=== PATIENT | male | born 1940 | race Caucasian/White ===

== ENCOUNTER 2017-07-28 20:41 | Inpatient (IN) | payer BC ==
[2017-07-28] MEDS ORDERED: methylPREDNISolone Sod Succ/PF 125 MG/2 ML VIAL ONE (21:52)
[2017-07-28] MEDS ORDERED: Magnesium Sulfate 2 GM/100 ML BAG ONE (21:52)
--- NOTE | 2017-07-28 21:54 | RAD ---
CHEST ONE VIEW: 07/28/17 HISTORY: Patient is sick for three days. Dyspnea. COMPARISON: None. FINDINGS: Atherosclerosis of the aorta. Normal cardiac silhouette. Pulmonary vessels and hilum are normal. Limi kim evaluation of the costophrenic angles due to exclusion. Large pleural effusions are not appreciat ed. Lungs are hyperinflated. Chronic changes are noted. No consolidation or masses. No pneumothorax. Old left rib fractures. Previous fixation hardware in the left clavicle. IMPRESSION: 1. Hyperinflation. Chronic changes. 2. Atherosclerosis. POS: [facility]
[2017-07-28 22:09] LABS: #Eosinphils 0.1 thou/uL (0.0-0.7); #Lymphocytes 0.7 thou/uL (1.20-3.40); #Monocytes 0.6 thou/uL (0.11-0.59); #Neutrophils 6.9 thou/uL (1.40-6.50); %Basophils 0.5 % (0.0-1.0); %Eosinophils 0.9 % (0.0-10.0); %Lymphocytes 8.7 % (21.0-51.0); %Monocytes 6.8 % (0.0-10.0); %Neutrophils 83.1 % (42.0-75.0); Hemoglobin 10.1 g/dL (14.0-18.0); Mean Corpuscular HGB CONC 31.1 g/dL (32.0-36.0); Mean Corpuscular Hemoglobin 32.5 pg (27.0-31.0); Mean Platelet Volume 7.5 fL (7.4-10.4); Platelet Count 195 thou/uL (130-400); RBC Distribution Width 12.4 % (11.5-14.5); Red Blood Cell (RBC) Count 3.11 mill/uL (4.70-6.10); White Blood Cell (WBC) Count 8.3 thou/uL (4.8-10.8)
[2017-07-28 22:16] LABS: Bilirubin Negative (Negative); Blood, Urine Moderate (Negative); Clarity CLEAR (Clear); Glucose, Urine (Dipstick) Negative (Negative); Leukocyte Negative (Negative); Nitrite Negative (Negative); Protein, Urine (Dipstick) Trace mg/dL (Neg-Trace); Specific Gravity, Urine 1.013 (1.002-1.036); Urobilinogen 0.2 mg/dL (0.2-1.0)
[2017-07-28 22:23] LABS: Bacteria/HPF None Seen HPF (None Seen); Hyaline Casts/LPF 0-3 HYALINE CAST LPF (0-3 Hyaline); Pathc Cast-AUWi Flag 0.14 (0-2.49); Squamous Epithelial None Seen HPF (0-3); WBC/HPF None Seen HPF (0-3)
[2017-07-28 22:30] LABS: ALT (SGPT) 9 U/L (8-55); AST (SGOT) 18 U/L (5-34); Albumin 3.5 g/dL (3.4-4.8); Alkaline Phosphatase 53 U/L (40-150); Anion Gap 12 mmol/L (10-20); BUN (Urea Nitrogen) 26 mg/dL (8.4-25.7); Bilirubin, Total 0.2 mg/dL (0.2-1.2); CK (CPK) 28 U/L (30-200); Calc. Creatinine Clearance 0 mL/min (70-130); Calcium 9.4 mg/dL (7.8-10.44); Carbon Dioxide 35 mmol/L (23-31); Chloride 93 mmol/L (98-107); Estimated GFR-MDRD 77; Globulin 3.6 g/dL (2.4-3.5); Glucose 107 mg/dL (83-110); Lipase 18 U/L (8-78); Potassium 4.3 mmol/L (3.5-5.1); Protein, Total 7.1 g/dL (5.8-8.1); Sodium 136 mmol/L (136-145)
[2017-07-28 22:33] LABS: CKMB 2.4 ng/mL (0-6.6); Troponin I Less than 0.010 ng/mL (< 0.028)
[2017-07-28] MEDS ORDERED: Azithromycin 500 MG VIAL ONE (23:35)
[2017-07-28] MEDS ORDERED: cefTRIAXone\\ROCEPHIN 2 GM VIAL ONE (23:35)
[2017-07-29] MEDS ORDERED: Sodium Chloride 0.9% 1,000 ML IV SCH ×2 (01:34→14:08)
[2017-07-29] MEDS ORDERED: Ondansetron ODT 4 MG TAB SL PRN (01:34)
[2017-07-29] MEDS ORDERED: Ondansetron HCl/PF 4 MG/2 ML Vial IVP PRN ×2 (01:34→02:14)
[2017-07-29] MEDS ORDERED: Acetaminophen 325 MG TAB PO PRN (01:34)
[2017-07-29 02:11] LABS: Lactic Acid 2.3 mmol/L (0.5-2.2)
[2017-07-29] MEDS ORDERED: Benzonatate 100 MG CAP PO PRN (02:14)
[2017-07-29] MEDS ORDERED: Acetaminophen 500 MG TAB PO PRN (02:14)
[2017-07-29] MEDS ORDERED: hydrALAZINE 20 MG/ML VIAL SLOW IVP PRN (02:14)
[2017-07-29] MEDS ORDERED: cloNIDine 0.1 MG TAB PO PRN (02:14)
[2017-07-29] MEDS ORDERED: Ondansetron ODT 4 MG TAB PO PRN (02:14)
[2017-07-29 02:34] VITALS: BMI 20.2
[2017-07-29] MEDS: Sodium Chloride 0.9% 1,000 ML IV SCH ×2 (03:01→12:02)
--- NOTE | 2017-07-29 04:09 | HP ---
DATE OF ADMISSION: 07/29/2017 PRIMARY CARE PHYSICIAN: Dr. Jonatan Morton. CHIEF COMPLAINT: Shortness of breath and weakness. HISTORY OF PRESENT ILLNESS: This is a 76-year-old male, who presents to [facility] Emergency Department complaining of increasing shortness of breath over approximately 4-day time frame in the context of known chronic obstructive pulmonary disease and emphysema, on chr onic oxygen supplementation at 2-4 liters per minute by nasal cannula. The patient noted increasing weakness of his lower extremities when attempting to go to the restroom, which is not typical for him . 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 The patient denies any known sick contacts or exposure history; however, does state he recently underwent catara ct surgery x2 in the last 1-2 weeks. The patient spoke with his primary care provider regarding his symptoms, at which point he was called in a prescription for Zithromax and a Medrol Dosepak. The pat ient took 1 dose of Zithromax; however, presented to the emergency room due to increasing weakness an d worsening respiratory status. The patient does admit that he smoked in the remote past, greater th an 25 years ago, but none currently. The patient does say he uses multiple inhalers, but does not gamez ve a nebulizer machine at home. The patient uses oxygen chronically and at nighttime ranging from 2- 4 liters per minute. 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 In the e mergency room, the patient underwent general evaluation including chest imaging showing chronic pastor es and hyperinflation of the lung ayala. The patient's O2 saturation was 96% on 4 liters by nasal c annula. The patient received DuoNeb therapy as well as azithromycin and Rocephin intravenously. The patient also received Solu-Medrol, magnesium, and intravenous normal saline x1 liter. the patient s tates his symptoms had improved with initial management in the emergency room and was transferred to the medical floor for further evaluation. PAST MEDICAL HISTORY: 1. Chronic obstructive pulmonary disease. 2. Chronic hypoxemic respiratory failure with chronic oxygen supplementation at 2-4 liters per minut e by nasal cannula. 3. History of multiple rib fractures. 4. History of spontaneous pneumothorax. 5. Clavicle fracture with open reduction and internal fixation. 6. Prostate cancer. PAST SURGICAL HISTORY: 1. Status post lung surgery. 2. Status post open reduction and internal fixation of clavicle fracture. 3. Status post post-lung biopsy. CURRENT MEDICATIONS: 1. Rapaflo 4 mg p.o. q.a.m. 2. Ventolin HFA 1 puff inhaled q.4 hours p.r.n. 3. Spiriva inhaler 1 inhalation daily. ALLERGIES: LEVAQUIN and PENICILLIN. FAMILY HISTORY: No inheritable diseases per patient report. SOCIAL HISTORY: , accompanied by his in the hospital. Resides in the [place], [place] are a. 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 oked remotely, quitting 25+ years prior to this evaluation. No current alcohol or illicit drug use. Functional of all activities of daily living. Recent difficulty with ambulation without traumatic f all. REVIEW OF SYSTEMS: The following complete review of systems was negative, unless otherwise mentioned in the HPI or below: Constitutional: Weight loss or gain, ability to conduct usual activities. Sk in: Rash, itching. Eyes: Double vision, pain. ENT/Mouth: Nose bleeding, neck stiffness, pain, te nderness. Cardiovascular: Palpitations, dyspnea on exertion, orthopnea. Respiratory: Shortness of breath, wheezing, cough, hemoptysis, fever, or night sweats. Gastrointestinal: Poor appetite, abdo renay pain, heartburn, nausea, vomiting, constipation, or diarrhea. Genitourinary: Urgency, frequen cy, dysuria, nocturia. Musculoskeletal: Pain, swelling. Neurologic/Psychiatric: Anxiety, depressi on. Allergy/Immunologic: Skin rash, bleeding tendency. Otherwise negative except as stated per HPI . PHYSICAL EXAMINATION: VITAL SIGNS: On admission, blood pressure 162/59, pulse 68, respiratory rate 20, temperature 98.7 de grees Fahrenheit, O2 saturation 96% on 4 liters per minute by nasal cannula. GENERAL APPEARANCE: This is a 76-year-old male, alert, and oriented x3, pleasant, conversa nt, in no acute distress. HEENT EXAM: Pupils are equal, round, and reactive to light and accommodation. Extraocular muscles a re intact. No scleral icterus, no conjunctival injection. Nares patent. OP is clear. Teeth in abiodun r repair. NECK: Supple, no cervical adenopathy, no thyromegaly, no carotid bruits, no JVD appreciated. Cervic al spine with full active and passive range of motion. No meningeal signs appreciated. CHEST: Diminished breath sounds bilaterally. Expiratory wheezing bilaterally. Coarse rhonchi bilat erally. CARDIOVASCULAR EXAM: S1, S2 with distant heart sounds. No murmur, rub, or gallop appreciated. ABDOMEN: Rounded, soft, nontender, nondistended. Bowel sounds are positive in all 4 quadrants. The re is no hepatosplenomegaly, no abdominal bruits, no rebound or guarding appreciated. EXTREMITIES: Warm and dry with fair turgor. No clubbing, cyanosis, or asymmetric edema appreciated. Pulses palpable distally at the dorsalis pedis, posterior tibial, and popliteal arteries bilaterall y. Capillary refill less than 2 seconds. NEUROLOGIC EXAM: Cranial nerves II-XII are grossly intact. No focal or lateralizing signs appreciat ed. The patient not observed ambulatory during this exam. PERTINENT LABORATORY AND X-RAY FINDINGS: Sodium 136, potassium 4.3, chloride 93, CO2 of 35, BUN 26, creatinine 0.95, glucose 107. Lactic acid level 3.1, calcium 9.4, magnesium 2.0. LFTs within normal limits. Troponin I negative x1. Lipase 18. CBC showed a white blood cell count 8.3, hemoglobin 10 , hematocrit 32.5, MCV 104, platelet count 195 with 83% neutrophils. Urinalysis showed moderate bloo d with 11-20 rbcs per high power field. Portable chest x-ray dated 07/28/2017 showed chronic changes in bilateral lung ayala consistent with chronic obstructive pulmonary disease. Multiple old left-s ided rib fractures noted. ASSESSMENT AND PLAN: 1. Acute on chronic hypoxemic respiratory failure. The patient will continue on oxygen supplementat ion to maintain O2 saturations greater than or equal to 90%. Suspect presentation secondarily to #2. 2. Acute chronic obstructive pulmonary disease exacerbation. We will continue Solu-Medrol 40 mg IV q.6 hours with additional DuoNeb q.4 hours, Rocephin 2 grams IV q.24 hours with additional Zithromax 500 mg IV daily. Continue Spiriva 18 mcg inhaled daily, Mucinex DM 1 p.o. b.i.d. We will consult lmonology Service for evaluation and comanagement as well as to establish care for outpatient service s. 3. Lactic acidosis, suspect secondarily to #2. Continue serial monitoring and treatment as outlined in #2. 4. Chronic macrocytic anemia. We will check B12 and folate level in the a.m. No current evidence o f acute blood loss. Repeat CBC in the a.m. 5. Deconditioning. Consult physical therapy for evaluation and functional assessment. General fall risk precautions. 6. Code status is FULL. Surrogate medical decision maker is patient's spouse.
[2017-07-29 05:33] LABS: Folate (Folic Acid) 14.5 ng/mL (7.0-31.4)
[2017-07-29 06:00] LABS: Anion Gap 13 mmol/L (10-20); BUN (Urea Nitrogen) 24 mg/dL (8.4-25.7); Calc. Creatinine Clearance 57 mL/min (70-130); Calcium 8.8 mg/dL (7.8-10.44); Carbon Dioxide 31 mmol/L (23-31); Chloride 98 mmol/L (98-107); Estimated GFR-MDRD 72; Glucose 259 mg/dL (83-110); Potassium 4.4 mmol/L (3.5-5.1); Sodium 138 mmol/L (136-145)
[2017-07-29 06:43] LABS: Hemoglobin 9.3 g/dL (14.0-18.0); Mean Corpuscular HGB CONC 31.6 g/dL (32.0-36.0); Mean Corpuscular Hemoglobin 33.1 pg (27.0-31.0); Platelet Count 163 thou/uL (130-400); RBC Distribution Width 12.5 % (11.5-14.5); Red Blood Cell (RBC) Count 2.81 mill/uL (4.70-6.10); White Blood Cell (WBC) Count 8.6 thou/uL (4.8-10.8)
[2017-07-29] MEDS: Ipratropium Bromide 2.5 ml Neb NEB SCH ×5 (06:47→22:24)
[2017-07-29] MEDS ORDERED: Spiriva 18 MCG CAP (Box of 5 Caps) INH SCH (07:00)
[2017-07-29 08:28] LABS: Band 32 % (5-11); Lymphocytes 4 % (21-51); MDiff Complete? YES; Neutrophil 64 % (42-75); PLT Morphology Comment Appears Adequate; Polychromasia SLIGHT = 2-3 cells (100X) (0-2/hpf)
[2017-07-29] MEDS ORDERED: Famotidine 20 MG TAB PO SCH (09:00)
[2017-07-29] MEDS ORDERED: guaiFENesin/DM ER PO SCH (09:00)
[2017-07-29] MEDS ORDERED: Ibuprofen 200 MG TAB PO PRN (12:14)
[2017-07-29 14:45] LABS: Hemoglobin A1c 5.2 % (4.0-6.0)
--- NOTE | 2017-07-29 14:49 | CON ---
DATE OF CONSULTATION: 07/29/2017 SERVICE: Pulmonary Medicine. REASON FOR CONSULTATION: Chronic obstructive pulmonary disease. HISTORY OF PRESENT ILLNESS: The patient is a 76-year-old white male with past medical history significant for COPD. This was diagnosed quite some time ago. That being said, for the past 3-4 years, he has been on no medications except for p.r.n. Ventolin. He was in his usual state of health last night when he went to bed. When he woke up this morning, he felt weak in the arms and legs. He had a difficult time getting out of bed. Apparently, there was a little bit of increased shortness of breath, but he seems to downplay that a little bit. He called EMS services to come out and evaluate him. All he wanted them to do was get him out of bed into the bathroom and back to bed. That being said, he was found to be hypoxemic. He was subsequently brought to the emergency department. He denies any current fevers or chills. He has not had any specific cough above baseline. He did have some increasing work of breathing. Overnight, he is given steroids and nebulized medications as well as antibiotics. He feels a little bit improved this morning. His strength is yet to come around. PAST MEDICAL HISTORY: 1. COPD. 2. Chronic hypoxic respiratory failure, on O2 at 4 liters per minute, continuous. 3. History of spontaneous pneumothorax. 4. Prostate cancer. PAST SURGICAL HISTORY: 1. Left clavicular open reduction and internal fixation. 2. Chest tube placement. 3. History of lung biopsy. FAMILY HISTORY: Noncontributory. SOCIAL HISTORY: The patient is . He lives on a ranch in [place], [place]. He has a greater than [id number] history of smoking, but quit over 25 years ago. He denies any significant alcohol or illicit drug use. He has no exposure to chemicals, dust, asbestos, or tuberculosis. ALLERGIES: LEVAQUIN, PENICILLIN. MEDICATIONS: List of his inpatient medications were reviewed. A couple of small updates were made. REVIEW OF SYSTEMS: General, head, ears, eyes, nose, throat, cardiovascular, respiratory, GI, , musculoskeletal, neurologic, and skin is negative, except as mentioned in the HPI. PHYSICAL EXAMINATION: VITAL SIGNS: Afebrile, pulse 66, blood pressure 158/71, respirations 20, saturation 96% on 4 liters nasal cannula. GENERAL: The patient is awake, alert, in no apparent distress. LUNGS: Reduced air entry. There is a prolonged inspiratory and expiratory phase. He has a polyphonic wheezing present. HEART: Normal rate, regular. ABDOMEN: Soft, nontender, nondistended. Bowel sounds are positive. MUSCULOSKELETAL: No cyanosis or clubbing. There is no pitting in the bilateral lower extremities. NEUROLOGIC: Grossly nonfocal. LABORATORY DATA: WBC 8.6, hemoglobin 9.3, platelets 163,000. Band count is actually 32%. Basic metabolic profile is essentially unremarkable except for creatinine that is roughly stable at 1.01. Lactate is down trending to 2.3. Folate 14.5, vitamin B12 679. Liver function studies are essentially unremarkable. Urinalysis is essentially unremarkable. Blood cultures x2 and urine culture negative to date. IMAGING: Chest x-ray demonstrates hyperexpanded bilateral lung ayala. I do not appreciate an acute consolidating change anywhere. There is scar tissue throughout bilateral lung ayala with a possible small nodule in the right mid lung zone. ASSESSMENT: 1. Acute on chronic hypoxic respiratory failure. 2. Chronic obstructive pulmonary disease with acute exacerbation. 3. Macrocytic anemia. 4. Deconditioning. PLAN: We are going to work on moving the patient. Physical therapy's help will be enlisted. I will deescalate our steroids, but we can continue our antibiotics and our nebulized medication. In the outpatient setting, we will reevaluate some of his chronic inhalers and consider him for long-acting therapy once again as well as getting a baseline pulmonary function studies on him. He indicates to me that his breathing is close to baseline. As such, we will get an ABG to see if he suffers from chronic hypercapnic failure as well. Pulmonary will continue to follow. 70 minutes have been devoted to this patient in various activities. I personally reviewed all imaging studies and laboratory data noted within this document. For fifty percent of this time, I was interacting with the patient at the bedside or coordinating care with the care team. For the remainder of the time I was immediately available to the patient in the hospital unit. KESHA
[2017-07-29 15:03] LABS: Actual Bicarbonate (HCO3a) 35.3 mEq/L (22-26); Base Excess (BEa) 7.7 mEq/L (0 (+/-) 2.5); CO2 Tension 70.3 mmHg (35.0-45.0); Hemoglobin (Hb) 9.3 g/dL (14.0-18.0); O2 Tension (PaO2) 66.5 mmHg (80.0-100.0); pH, Arterial 7.32 (7.35-7.45)
[2017-07-29 15:04] LABS: Calcium, Ionized 1.2 mmol/L (1.12-1.30); Puncture Site LBA
[2017-07-29] MEDS: guaiFENesin ER 600 MG TAB PO SCH (20:06)
--- NOTE | 2017-07-29 20:56 | PDOC.PN ---
- Subjective Encounter Start Date: 07/29/17 Encounter Start Time: 15:30 Patient seen and examined. SOB on mild exertion. Dry cough +. No overnight events - Objective Resuscitation Status: Resuscitation Status FULL:Full Resuscitation MAR Reviewed: Yes Vital Signs & Weight: Vital Signs (12 hours) Temp Pulse Resp BP Pulse Ox 07/29/17 19:51 98.1 F 78 18 151/68 H 96 07/29/17 18:31 67 18 97 07/29/17 16:00 97.9 F 69 20 154/71 H 97 07/29/17 12:20 97.9 F 66 20 158/71 H 96 07/29/17 11:52 68 20 94 L I&O: 07/28/17 07/29/17 07/30/17 06:59 06:59 06:59 Intake Total 2750 Output Total 275 Balance 2475 Result Diagrams: 07/29/17 01:45 07/29/17 01:45 Radiology Reviewed by me: Yes (CXR - no infiltrate) Phys Exam - Physical Examination Pt in mild resp distress Respiratory: no rales, wheezing present Scat rhonchi, Accessory muscle use Cardiovascular: RRR, no rub no heaves/pulsations Gastrointestinal: soft, non-tender, no distention, positive bowel sounds Musculoskeletal: no edema, pulses present Neurological: non-focal, normal sensation, moves all 4 limbs Psychiatric: normal affect, A&O x 3 Skin: no rash Dx/Plan - Plan continue antibiotics, PT/OT, respiratory therapy, DVT proph w/SCDs IMPRESSION: 1. Acute hypoxic/hypercapnic resp failure due to COPD exacerbation 2. Physical deconditioning 3. Lactic acidosis 4. Chronic resp failure on home O2 5. Hyperglycemic due to steroids. A1c 5.2 6. CKD 2 PLAN: * Resp viral panel negative * Pulm input appreciated * Cont nebs/Abtx/steroids * Cont other meds as below * AM labs Microbiology 07/29/17 15:11 Nasopharyngeal swab Respiratory Panel (PCR) - Final 07/28/17 22:00 Urine voided Urine Culture - Preliminary NO GROWTH AT 12 HOURS 07/28/17 21:51 Venous blood - Left Hand Blood Culture - Preliminary Specimen has been received and culture in progress. No Growth to date. 07/28/17 21:40 Venous blood - Left Arm Blood Culture - Preliminary Specimen has been received and culture in progress. No Growth to date. Laboratory Tests 07/28/17 07/29/17 07/29/17 21:58 01:45 15:00 Bicarbonate Actual 35.3 H ABG pH 7.32 L ABG pCO2 70.3 H* ABG pO2 66.5 L Lactic Acid 3.1 H 2.3 H Review of Systems - Review of Systems Cardiovascular: negative: chest pain, palpitations, orthopnea, paroxysmal nocturnal dyspnea, edema, light headedness, other Gastrointestinal: negative: Nausea, Vomiting, Abdominal Pain, Diarrhea, Constipation, Melena, Hematochezia, Other - Medications/Allergies Allergies/Adverse Reactions: Allergies Allergy/AdvReac Type Severity Reaction Status Date / Time levofloxacin [From Levaquin] Allergy Verified 07/29/17 01:32 Penicillins Allergy Verified 07/29/17 01:32 Medications: Current Medications Acetaminophen (Tylenol) 1,000 mg PO Q6H PRN PRN Reason: Headache/Fever or Mild Pain Albuterol/Ipratropium (Duoneb) 3 ml NEB [id number] PRN PRN Reason: SOB &/or Wheezing Clonidine (Catapres) 0.1 mg PO Q4H PRN PRN Reason: Systolic BP > 180 Guaifenesin (Mucinex) 1,200 mg PO Q12HR [facility] Last Admin: 07/29/17 20:06 Dose: 1,200 mg Hydralazine HCl (Apresoline) 10 mg SLOW IVP Q4H PRN PRN Reason: Systolic BP > 180 Azithromycin 500 mg/ Sodium (Chloride) 250 mls @ 250 mls/hr IVPB 0030 REJI Ceftriaxone Sodium 2 gm/ (Sodium Chloride) 100 mls @ 200 mls/hr IVPB 2359 [facility] Sodium Chloride (Normal Saline 0.9%) 1,000 mls @ 0 mls/hr IV .Q0M REJI PRN Reason: KVO Ibuprofen (Motrin) 400 mg PO Q6H PRN PRN Reason: Pain Last Admin: 07/29/17 12:35 Dose: 400 mg Ipratropium [place] (Atrovent) 2.5 ml NEB [id number] [facility] Last Admin: 07/29/17 18:31 Dose: 2.5 ml Ondansetron HCl (Zofran Odt) 4 mg PO Q6H PRN PRN Reason: Nausea/Vomiting Ondansetron HCl (Zofran) 4 mg IVP Q6H PRN PRN Reason: Nausea/Vomiting Prednisone (Prednisone) 40 mg PO QAM- REJI
[2017-07-30] MEDS: cefTRIAXone\\ROCEPHIN 2 GM in Sodium Chloride 0.9% 100 ML IVPB SCH ×2 (00:27→23:52)
[2017-07-30] MEDS: Azithromycin 500 MG in Sodium Chloride 0.9% 250 ML 250 ML IVPB SCH (00:44)
[2017-07-30] MEDS: Ipratropium Bromide 2.5 ml Neb NEB SCH ×7 (02:23→22:03)
[2017-07-30 04:06] LABS: #Lymphocytes 0.9 thou/uL (1.20-3.40); #Monocytes 0.9 thou/uL (0.11-0.59); #Neutrophils 5.3 thou/uL (1.40-6.50); %Basophils 0.1 % (0.0-1.0); %Eosinophils 0.6 % (0.0-10.0); %Lymphocytes 12.9 % (21.0-51.0); %Monocytes 11.9 % (0.0-10.0); %Neutrophils 74.5 % (42.0-75.0); Hemoglobin 9.6 g/dL (14.0-18.0); Mean Corpuscular HGB CONC 30.3 g/dL (32.0-36.0); Mean Corpuscular Hemoglobin 32.3 pg (27.0-31.0); Mean Platelet Volume 8.1 fL (7.4-10.4); Platelet Count 177 thou/uL (130-400); RBC Distribution Width 12.6 % (11.5-14.5); Red Blood Cell (RBC) Count 2.97 mill/uL (4.70-6.10); White Blood Cell (WBC) Count 7.1 thou/uL (4.8-10.8)
[2017-07-30 04:16] LABS: Lactic Acid 1.2 mmol/L (0.5-2.2)
[2017-07-30 04:20] LABS: Albumin 3.2 g/dL (3.4-4.8); BUN (Urea Nitrogen) 24 mg/dL (8.4-25.7); BUN/Creatinine Ratio 22.64; Calc. Creatinine Clearance 54 mL/min (70-130); Estimated GFR-MDRD 68; Glucose 105 mg/dL (83-110); Magnesium 2.1 mg/dL (1.6-2.6); Phosphorus 4.2 mg/dL (2.3-4.7)
[2017-07-30 04:29] LABS: Anion Gap 13 mmol/L (10-20); Carbon Dioxide 33 mmol/L (23-31); Chloride 102 mmol/L (98-107); Potassium 4.7 mmol/L (3.5-5.1); Sodium 143 mmol/L (136-145)
[2017-07-30] MEDS ORDERED: Artificial Tears 18 DROP/0.9 ML EA EYE PRN (07:34)
[2017-07-30] MEDS ORDERED: Loperamide HCl 2 MG CAP PO PRN (07:34)
[2017-07-30] MEDS ORDERED: Diabetic Tussin 200 MG/10 ML UDCUP PO PRN (07:34)
[2017-07-30] MEDS ORDERED: Eucerin (Mineral Oil/Petrolatum,White) 30 gm Jar TOP PRN (07:34)
[2017-07-30] MEDS ORDERED: Mag-Al 1200 mg/1200 mg/30 ML UDCUP PO PRN (07:34)
[2017-07-30] MEDS ORDERED: HYDROcodone/Acetaminophen 5/325 mg Tablet PO PRN (07:34)
[2017-07-30] MEDS ORDERED: Milk Of Magnesia 30 ML UDCUP PO PRN (07:34)
[2017-07-30] MEDS ORDERED: Chloraseptic Spray 180 ml Bottle PO PRN (07:34)
[2017-07-30] MEDS ORDERED: Loratadine 10 MG TAB PO PRN (07:34)
[2017-07-30] MEDS ORDERED: Senokot 8.6 MG TAB PO PRN (07:34)
[2017-07-30] MEDS ORDERED: Acetaminophen 325 MG TAB PO PRN (07:34)
[2017-07-30] MEDS: guaiFENesin ER 600 MG TAB PO SCH ×2 (08:39→20:16)
[2017-07-30] MEDS: predniSONE 20 MG TAB PO SCH (08:41)
[2017-07-30] MEDS: Famotidine 20 MG TAB PO SCH ×2 (11:10→20:16)
[2017-07-30] MEDS: Silodosin 4 MG CAP PO SCH (11:10)
--- NOTE | 2017-07-30 11:35 | PDOC.PN ---
- Subjective Encounter Start Date: 07/30/17 Encounter Start Time: 09:00 -: old records requested/rev Patient seen and examined. No new complaints. No overnight events still has dyspnea, cough, no fever - Objective Resuscitation Status: Resuscitation Status FULL:Full Resuscitation MAR Reviewed: Yes Vital Signs & Weight: Vital Signs (12 hours) Temp Pulse Resp BP Pulse Ox 07/30/17 11:13 68 20 93 L 07/30/17 08:00 97.4 F L 80 20 07/30/17 07:45 97.4 F L 80 20 168/77 H 94 L 07/30/17 06:23 66 18 94 L 07/30/17 06:00 97.3 F L 68 19 148/70 H 96 07/30/17 05:07 97.5 F L 65 20 115/67 07/30/17 02:23 64 20 97 07/30/17 00:00 19 95 I&O: 07/29/17 07/30/17 07/31/17 06:59 06:59 06:59 Intake Total 3800 Output Total 725 Balance 3075 Result Diagrams: 07/30/17 03:26 07/30/17 03:26 Radiology Reviewed by me: Yes Phys Exam - Physical Examination Constitutional: NAD HEENT: PERRLA, moist MMs, sclera anicteric Neck: no JVD, supple Respiratory: wheezing present coarse sound bilateral, reduced air entry Cardiovascular: RRR, no significant murmur, no rub Gastrointestinal: soft, non-tender, no distention, positive bowel sounds Musculoskeletal: no edema, pulses present Neurological: non-focal, normal sensation, moves all 4 limbs Lymphatic: no nodes Psychiatric: normal affect, A&O x 3 Skin: no rash, normal turgor Dx/Plan (1) Acute on chronic respiratory failure with hypoxia and hypercapnia Code(s): J96.21 - ACUTE AND CHRONIC RESPIRATORY FAILURE WITH HYPOXIA; J96.22 - ACUTE AND CHRONIC RESPIRATORY FAILURE WITH HYPERCAPNIA Status: Acute (2) COPD exacerbation Code(s): J44.1 - CHRONIC OBSTRUCTIVE PULMONARY DISEASE W (ACUTE) EXACERBATION Status: Acute (3) Physical deconditioning Code(s): R53.81 - OTHER MALAISE Status: Acute (4) Compensated respiratory acidosis Code(s): E87.2 - ACIDOSIS Status: Chronic (5) H/O prostate cancer Code(s): Z85.46 - PERSONAL HISTORY OF MALIGNANT NEOPLASM OF PROSTATE Status: Chronic (6) Macrocytic anemia Code(s): D53.9 - NUTRITIONAL ANEMIA, UNSPECIFIED Status: Chronic - Plan cont current plan of care, continue antibiotics, respiratory therapy * continue current optimum medical care for COPD * continue rocephin and azithromycin * medication reviewed as below * symptomatic treatment * nutritional support. * pulmonary recommendation appreciated * ambulate as tolerated Review of Systems - Review of Systems Constitutional: weakness. negative: fever, chills, sweats, malaise, other Eyes: negative: Pain, Vision Change, Conjunctivae Inflammation, Eyelid Inflammation, Redness, Other ENT: negative: Ear Pain, Ear Discharge, Nose Pain, Nose Discharge, Nose Congestion, Mouth Pain, Mouth Swelling, Throat Pain, Throat Swelling, Other Respiratory: Cough, Shortness of Breath, SOB with Excertion. negative: Dry, Hemoptysis, Pleuritic Pain, Sputum, Wheezing Cardiovascular: negative: chest pain, palpitations, orthopnea, paroxysmal nocturnal dyspnea, edema, light headedness, other Gastrointestinal: negative: Nausea, Vomiting, Abdominal Pain, Diarrhea, Constipation, Melena, Hematochezia, Other Genitourinary: negative: Dysuria, Frequency, Incontinence, Hematuria, Retention , Other Musculoskeletal: negative: Neck Pain, Shoulder Pain, Arm Pain, Back Pain, Hand Pain, Leg Pain, Foot Pain, Other Skin: negative: Rash, Lesions, Amando, Bruising, Other - Medications/Allergies Allergies/Adverse Reactions: Allergies Allergy/AdvReac Type Severity Reaction Status Date / Time levofloxacin [From Levaquin] Allergy Verified 07/29/17 01:32 Penicillins Allergy Verified 07/29/17 01:32 Medications: Current Medications Acetaminophen (Tylenol) 650 mg PO Q4H PRN PRN Reason: Headache/Fever or Mild Pain Hydrocodone Bitart/Acetaminophen ([place] 5/325) 1 tab PO Q4H PRN PRN Reason: Moderate Pain (4-6) Al Hydroxide/Mg Hydroxide (Maalox) 15 ml PO Q4H PRN PRN Reason: Heartburn or Indigestion Albuterol/Ipratropium (Duoneb) 3 ml NEB [id number] PRN PRN Reason: SOB &/or Wheezing Artificial Tears (Tears Naturale) 0 drop EA EYE PRN PRN PRN Reason: Dry Eyes Clonidine (Catapres) 0.1 mg PO Q4H PRN PRN Reason: Systolic BP > 180 Famotidine (Pepcid) 20 mg PO BID [facility] Last Admin: 07/30/17 11:10 Dose: 20 mg Guaifenesin (Mucinex) 1,200 mg PO Q12HR [facility] Last Admin: 07/30/17 08:39 Dose: 1,200 mg Guaifenesin (Robitussin Sf) 200 mg PO Q4H PRN PRN Reason: Cough Hydralazine HCl (Apresoline) 10 mg SLOW IVP Q4H PRN PRN Reason: Systolic BP > 180 Azithromycin 500 mg/ Sodium (Chloride) 250 mls @ 250 mls/hr IVPB 0030 [facility] Last Admin: 07/30/17 00:44 Dose: 250 mls Ceftriaxone Sodium 2 gm/ (Sodium Chloride) 100 mls @ 200 mls/hr IVPB 2359 [facility] Last Admin: 07/30/17 00:27 Dose: 100 mls Sodium Chloride (Normal Saline 0.9%) 1,000 mls @ 0 mls/hr IV .Q0M [facility] PRN Reason: KVO Ibuprofen (Motrin) 400 mg PO Q6H PRN PRN Reason: Pain Last Admin: 07/29/17 12:35 Dose: 400 mg Ipratropium [place] (Atrovent) 2.5 ml NEB [id number] [facility] Last Admin: 07/30/17 11:13 Dose: 2.5 ml Loperamide HCl (Imodium) 2 mg PO PRN PRN PRN Reason: Diarrhea/Loose Stools Loratadine (Claritin) 10 mg PO DAILYPRN PRN PRN Reason: Sinus Symptoms Magnesium Hydroxide (Milk Of Magnesium) 30 ml PO DAILYPRN PRN PRN Reason: Constipation Mineral Oil/White Petrolatum (Eucerin Cream) 0 gm TOP BIDPRN PRN PRN Reason: Dry Skin Ondansetron HCl (Zofran Odt) 4 mg PO Q6H PRN PRN Reason: Nausea/Vomiting Ondansetron HCl (Zofran) 4 mg IVP Q6H PRN PRN Reason: Nausea/Vomiting Phenol (Chloraseptic [place] 180 Ml Bot) 0 ml PO PRN PRN PRN Reason: Sore Throat Prednisone (Prednisone) 40 mg PO QAM-WM [facility] Last Admin: 07/30/17 08:41 Dose: 40 mg Senna (Senokot) 2 tab PO HSPRN PRN PRN Reason: Constipation Silodosin (Rapaflo) 4 mg PO QAM-WM [facility] Last Admin: 07/30/17 11:10 Dose: 4 mg Sodium Chloride ([place] Nasal [place] 0.65%) 0 ml EA NARE QIDPRN PRN PRN Reason: Nasal Congestion
--- NOTE | 2017-07-30 16:47 | PRG ---
DATE OF SERVICE: 07/30/2017 SERVICE: Pulmonary Medicine. INTERVAL HISTORY: The patient is doing fine from a respiratory standpoint. He is coughing up a significant amount of sputum this morning. He was actually up and out of bed into a chair yesterday evening, and this morning. Denies any chest pain, nausea, vomiting. His work of breathing is a little bit improved today. That being said, he continues to demonstrate some asterixis. PHYSICAL EXAMINATION: VITAL SIGNS: Afebrile, pulse 72, blood pressure 160/77, respirations 20, saturation 93% on 4 liters nasal cannula. GENERAL: The patient is awake, alert, no apparent distress. LUNGS: Rhonchi are present bilaterally. There is a prolonged expiratory phase. Wheezing is present. No crackles are appreciated. HEART: Normal rate, regular. ABDOMEN: Soft, nontender, nondistended. Bowel sounds are positive. MUSCULOSKELETAL: No cyanosis or clubbing. There is no pitting in the bilateral lower extremities. NEUROLOGIC: Grossly nonfocal. LABORATORY DATA: WBC 7.1, hemoglobin 9.6, platelets 177,000. A pH 7.32, pCO2 of 70, pO2 of 66.5. Basic metabolic profile is essentially unremarkable. Folate and B12 fall within the normal limits. Albumin is marginally low. His lactate has cleared to 1.2. Respiratory virus panel is unremarkable. Blood cultures x2 and urine culture negative. ASSESSMENT: 1. Acute on chronic hypoxic respiratory failure, improving. 2. Chronic hypercapnic respiratory failure. 3. Chronic obstructive pulmonary disease with acute exacerbation. 4. Macrocytic anemia. 5. Deconditioning. 6. Asterixis, likely secondary to hypercapnia. PLAN: We will continue to mobilize the patient. Nebulized medications, antibiotics, and steroids will be continued. We are going to observe acid reflux precautions. I will obtain an echocardiogram to make certain, he does not have any significant left ventricular dysfunction. I have assessed the patient and will be ordering volume ventilation for nocturnal and as needed daytime use for symptom management of chronic respiratory failure. Traditional home BiPAP is insufficient due to the severity of his disease process. COPD is a major contributing factor to the patient's chronic respiratory failure. We will check hepatitis C, chronic hepatitis B. profile. Ammonia level will be obtained in the morning as well as an INR looking into chronic liver diseases. My guess is his asterixis is coming from the hypercapnia, but I would like to make certain of this. MTDD
[2017-07-30] MEDS: Sodium Chloride 0.65% Nasal 44 ML BOT EA NARE PRN (17:30)
[2017-07-31] MEDS: Azithromycin 500 MG in Sodium Chloride 0.9% 250 ML 250 ML IVPB SCH ×2 (00:02→23:41)
[2017-07-31] MEDS: Ipratropium Bromide 2.5 ml Neb NEB SCH ×6 (02:09→22:39)
[2017-07-31 04:19] LABS: Prothrombin Time 13.5 SEC (12.0-14.7)
[2017-07-31 04:41] LABS: Hep C IgG Ab Non-Reactive (NonReactive); Hep C Index 0.16 S/CO (0-0.79)
--- NOTE | 2017-07-31 05:43 | PDOC.PN ---
- Subjective Encounter Start Date: 07/31/17 Encounter Start Time: 09:30 Patient seen and examined. No new complaints. No overnight events - Objective Resuscitation Status: Resuscitation Status FULL:Full Resuscitation MAR Reviewed: Yes Vital Signs & Weight: Vital Signs (12 hours) Temp Pulse Resp BP Pulse Ox 07/31/17 04:57 22 H 07/31/17 02:30 94 L 07/31/17 02:09 78 20 07/30/17 22:03 85 20 07/30/17 20:15 97.1 F L 78 20 90 L 07/30/17 20:00 97.1 F L 78 20 155/73 H 90 L 07/30/17 19:03 78 20 95 I&O: 07/29/17 07/30/17 07/31/17 06:59 06:59 06:59 Intake Total 3800 750 Output Total 725 800 Balance 3075 -50 Result Diagrams: 07/30/17 03:26 07/30/17 03:26 Phys Exam - Physical Examination Constitutional: NAD HEENT: PERRLA, moist MMs, sclera anicteric Neck: no JVD, supple Respiratory: no rales, wheezing present reduced air entry Cardiovascular: RRR, no significant murmur, no rub Gastrointestinal: soft, non-tender, no distention, positive bowel sounds Musculoskeletal: no edema, pulses present Neurological: non-focal, normal sensation, moves all 4 limbs Lymphatic: no nodes Psychiatric: normal affect, A&O x 3 Skin: no rash, normal turgor Dx/Plan (1) Acute on chronic respiratory failure with hypoxia and hypercapnia Code(s): J96.21 - ACUTE AND CHRONIC RESPIRATORY FAILURE WITH HYPOXIA; J96.22 - ACUTE AND CHRONIC RESPIRATORY FAILURE WITH HYPERCAPNIA Status: Acute (2) COPD exacerbation Code(s): J44.1 - CHRONIC OBSTRUCTIVE PULMONARY DISEASE W (ACUTE) EXACERBATION Status: Acute (3) Physical deconditioning Code(s): R53.81 - OTHER MALAISE Status: Acute (4) Compensated respiratory acidosis Code(s): E87.2 - ACIDOSIS Status: Chronic (5) H/O prostate cancer Code(s): Z85.46 - PERSONAL HISTORY OF MALIGNANT NEOPLASM OF PROSTATE Status: Chronic (6) Macrocytic anemia Code(s): D53.9 - NUTRITIONAL ANEMIA, UNSPECIFIED Status: Chronic - Plan cont current plan of care, continue antibiotics, respiratory therapy * add nutritional support * overall doing well and improving * medication reviewed as below * symptomatic treatment * continue current optimum medical therapy for copd * echo pending. Review of Systems - Review of Systems Constitutional: negative: fever, chills, sweats, weakness, malaise, other Eyes: negative: Pain, Vision Change, Conjunctivae Inflammation, Eyelid Inflammation, Redness, Other ENT: negative: Ear Pain, Ear Discharge, Nose Pain, Nose Discharge, Nose Congestion, Mouth Pain, Mouth Swelling, Throat Pain, Throat Swelling, Other Respiratory: Cough, Sputum. negative: Dry, Shortness of Breath, Hemoptysis, SOB with Excertion, Pleuritic Pain, Wheezing Cardiovascular: negative: chest pain, palpitations, orthopnea, paroxysmal nocturnal dyspnea, edema, light headedness, other Gastrointestinal: negative: Nausea, Vomiting, Abdominal Pain, Diarrhea, Constipation, Melena, Hematochezia, Other Genitourinary: negative: Dysuria, Frequency, Incontinence, Hematuria, Retention , Other Musculoskeletal: negative: Neck Pain, Shoulder Pain, Arm Pain, Back Pain, Hand Pain, Leg Pain, Foot Pain, Other Skin: negative: Rash, Lesions, Amando, Bruising, Other - Medications/Allergies Allergies/Adverse Reactions: Allergies Allergy/AdvReac Type Severity Reaction Status Date / Time levofloxacin [From Levaquin] Allergy Verified 07/29/17 01:32 Penicillins Allergy Verified 07/29/17 01:32 Medications: Current Medications Acetaminophen (Tylenol) 650 mg PO Q4H PRN PRN Reason: Headache/Fever or Mild Pain Hydrocodone Bitart/Acetaminophen ([place] 5/325) 1 tab PO Q4H PRN PRN Reason: Moderate Pain (4-6) Al Hydroxide/Mg Hydroxide (Maalox) 15 ml PO Q4H PRN PRN Reason: Heartburn or Indigestion Albuterol/Ipratropium (Duoneb) 3 ml NEB [id number] PRN PRN Reason: SOB &/or Wheezing Last Admin: 07/31/17 04:57 Dose: 3 ml Artificial Tears (Tears Naturale) 0 drop EA EYE PRN PRN PRN Reason: Dry Eyes Clonidine (Catapres) 0.1 mg PO Q4H PRN PRN Reason: Systolic BP > 180 Famotidine (Pepcid) 20 mg PO BID REJI Last Admin: 07/30/17 20:16 Dose: 20 mg Guaifenesin (Mucinex) 1,200 mg PO Q12HR [facility] Last Admin: 07/30/17 20:16 Dose: 1,200 mg Guaifenesin (Robitussin Sf) 200 mg PO Q4H PRN PRN Reason: Cough Hydralazine HCl (Apresoline) 10 mg SLOW IVP Q4H PRN PRN Reason: Systolic BP > 180 Azithromycin 500 mg/ Sodium (Chloride) 250 mls @ 250 mls/hr IVPB 0030 [facility] Last Admin: 07/31/17 00:02 Dose: 250 mls Ceftriaxone Sodium 2 gm/ (Sodium Chloride) 100 mls @ 200 mls/hr IVPB 2359 [facility] Last Admin: 07/30/17 23:52 Dose: 100 mls Sodium Chloride (Normal Saline 0.9%) 1,000 mls @ 0 mls/hr IV .Q0M [facility] PRN Reason: KVO Ibuprofen (Motrin) 400 mg PO Q6H PRN PRN Reason: Pain Last Admin: 07/29/17 12:35 Dose: 400 mg Ipratropium [place] (Atrovent) 2.5 ml NEB [id number] [facility] Last Admin: 07/31/17 02:09 Dose: 2.5 ml Loperamide HCl (Imodium) 2 mg PO PRN PRN PRN Reason: Diarrhea/Loose Stools Loratadine (Claritin) 10 mg PO DAILYPRN PRN PRN Reason: Sinus Symptoms Magnesium Hydroxide (Milk Of Magnesium) 30 ml PO DAILYPRN PRN PRN Reason: Constipation Mineral Oil/White Petrolatum (Eucerin Cream) 0 gm TOP BIDPRN PRN PRN Reason: Dry Skin Ondansetron HCl (Zofran Odt) 4 mg PO Q6H PRN PRN Reason: Nausea/Vomiting Ondansetron HCl (Zofran) 4 mg IVP Q6H PRN PRN Reason: Nausea/Vomiting Phenol (Chloraseptic [place] 180 Ml Bot) 0 ml PO PRN PRN PRN Reason: Sore Throat Prednisone (Prednisone) 40 mg PO QAM-WM [facility] Last Admin: 07/30/17 08:41 Dose: 40 mg Senna (Senokot) 2 tab PO HSPRN PRN PRN Reason: Constipation Silodosin (Rapaflo) 4 mg PO QAM-WM REJI Last Admin: 07/30/17 11:10 Dose: 4 mg Sodium Chloride ([place] Nasal [place] 0.65%) 0 ml EA NARE QIDPRN PRN PRN Reason: Nasal Congestion Last Admin: 07/30/17 17:30 Dose: 1 spr
[2017-07-31] MEDS: predniSONE 20 MG TAB PO SCH (08:00)
[2017-07-31] MEDS: guaiFENesin ER 600 MG TAB PO SCH ×2 (08:00→20:57)
[2017-07-31] MEDS: Famotidine 20 MG TAB PO SCH ×2 (08:00→20:57)
[2017-07-31] MEDS: Silodosin 4 MG CAP PO SCH (08:00)
[2017-07-31] MEDS: Sodium Chloride 0.65% Nasal 44 ML BOT EA NARE PRN (12:55)
[2017-07-31] MEDS: cefTRIAXone\\ROCEPHIN 2 GM in Sodium Chloride 0.9% 100 ML IVPB SCH (23:30)
[2017-08-01] MEDS: Ipratropium Bromide 2.5 ml Neb NEB SCH ×6 (02:27→21:32)
[2017-08-01] MEDS: guaiFENesin ER 600 MG TAB PO SCH ×2 (08:15→20:36)
[2017-08-01] MEDS: Famotidine 20 MG TAB PO SCH ×2 (08:16→20:36)
[2017-08-01] MEDS: predniSONE 20 MG TAB PO SCH (08:16)
--- NOTE | 2017-08-01 09:11 | CT ---
CT OF THE THORAX WITHOUT CONTRAST: Date: 08/01/17 INDICATION: 76-year-old male with difficulty breathing and history of COPD. COMPARISON: None. FINDINGS: There are severe changes of centrilobular and paraseptal emphysema involving both lungs. There is a s mall left pleural effusion with left basilar atelectasis. There is some entrapped fluid seen within t he left major fissure. There is some reticulonodularity seen involving the posterior and medial right lower lobe, as well as the inferior lingula. There are scattered vascular calcifications. There is e nlargement of the pulmonary vasculature. There are mildly prominent prevascular and AP window lymph n odes, the largest measuring 9.6 mm within the prevascular space. There is a small hiatal hernia. Visu alized adrenal glands are normal appearing. There is bilateral nephrolithiasis with a 5.0 mm stone wi thin the right renal pelvis. There is a 1.0 mm nonobstructing stone within the inferior pole of the l eft kidney. There is a tiny hypodensity within the medial left hepatic lobe that cannot be fully bony acterized on the current examination measuring 1.2 cm. There is diffuse osteopenia. There is scattere d degenerative and osteoarthritic change. There is partial visualization of instrumentation involving the left mid to distal clavicle. IMPRESSION: 1. Severe emphysema. 2. Small left pleural effusion with left basilar air space opacity suspicious for atelectasis. 3. Reticulonodularity seen within the right lower lobe and lingula suspicious for bronchiolitis of i nfectious or inflammatory etiology. 4. Slightly prominent mediastinal lymph nodes. 5. Left hepatic lobe hypodensity is difficult to characterize due to its size and lack of IV contras t. 6. Bilateral nephrolithiasis. 7. Diffuse osteopenia. POS: SHIRLEY
[2017-08-01] MEDS: Silodosin 4 MG CAP PO SCH (09:41)
[2017-08-01] MEDS ORDERED: Furosemide 40 MG/4 ML VIAL SLOW IVP SCH (10:00)
--- NOTE | 2017-08-01 10:03 | PDOC.PN ---
- Subjective Encounter Start Date: 08/01/17 Encounter Start Time: 09:00 Patient seen and examined. No new complaints. No overnight events still has cough, has dyspnea, not to baseline, gets hypoxic very quickly with exertion - Objective Resuscitation Status: Resuscitation Status FULL:Full Resuscitation MAR Reviewed: Yes Vital Signs & Weight: Vital Signs (12 hours) Temp Pulse Resp BP Pulse Ox 08/01/17 08:00 98.0 F 84 20 158/74 H 90 L 08/01/17 06:26 83 20 95 08/01/17 02:27 67 20 93 L 08/01/17 01:39 92 L 08/01/17 00:30 85 20 95 07/31/17 22:39 69 20 92 L I&O: 07/31/17 08/01/17 08/02/17 06:59 06:59 06:59 Intake Total 1700 750 Output Total 1450 450 Balance 250 300 Result Diagrams: 07/30/17 03:26 07/30/17 03:26 Radiology Reviewed by me: Yes (Echo, CT chest) Phys Exam - Physical Examination Constitutional: NAD HEENT: PERRLA, moist MMs, sclera anicteric Neck: no JVD, supple bilateral coarse sound, reduced air entry Cardiovascular: RRR, no significant murmur, no rub Gastrointestinal: soft, non-tender, no distention, positive bowel sounds Musculoskeletal: no edema, pulses present Neurological: non-focal, normal sensation Lymphatic: no nodes Psychiatric: normal affect, A&O x 3 Skin: no rash, normal turgor Dx/Plan (1) Acute on chronic respiratory failure with hypoxia and hypercapnia Code(s): J96.21 - ACUTE AND CHRONIC RESPIRATORY FAILURE WITH HYPOXIA; J96.22 - ACUTE AND CHRONIC RESPIRATORY FAILURE WITH HYPERCAPNIA Status: Acute (2) COPD exacerbation Code(s): J44.1 - CHRONIC OBSTRUCTIVE PULMONARY DISEASE W (ACUTE) EXACERBATION Status: Acute (3) Physical deconditioning Code(s): R53.81 - OTHER MALAISE Status: Acute (4) Compensated respiratory acidosis Code(s): E87.2 - ACIDOSIS Status: Chronic (5) H/O prostate cancer Code(s): Z85.46 - PERSONAL HISTORY OF MALIGNANT NEOPLASM OF PROSTATE Status: Chronic (6) Macrocytic anemia Code(s): D53.9 - NUTRITIONAL ANEMIA, UNSPECIFIED Status: Chronic (7) Bronchiolitis Code(s): J21.9 - ACUTE BRONCHIOLITIS, UNSPECIFIED Status: Acute - Plan cont current plan of care, continue antibiotics, PT/OT, respiratory therapy * continue current optimum medical therapy for COPD * he has very severe copd, takes time to recover * medication reviewed as below * symptomatic treatment * prognosis is guarded * he is at risk for recurrent admission. Review of Systems - Review of Systems Constitutional: weakness. negative: fever, chills, sweats, malaise, other Eyes: negative: Pain, Vision Change, Conjunctivae Inflammation, Eyelid Inflammation, Redness, Other ENT: negative: Ear Pain, Ear Discharge, Nose Pain, Nose Discharge, Nose Congestion, Mouth Pain, Mouth Swelling, Throat Pain, Throat Swelling, Other Respiratory: Cough, Shortness of Breath, SOB with Excertion, Sputum. negative: Dry, Hemoptysis, Pleuritic Pain, Wheezing Gastrointestinal: negative: Nausea, Vomiting, Abdominal Pain, Diarrhea, Constipation, Melena, Hematochezia, Other Genitourinary: negative: Dysuria, Frequency, Incontinence, Hematuria, Retention , Other Musculoskeletal: negative: Neck Pain, Shoulder Pain, Arm Pain, Back Pain, Hand Pain, Leg Pain, Foot Pain, Other Skin: negative: Rash, Lesions, Amando, Bruising, Other - Medications/Allergies Allergies/Adverse Reactions: Allergies Allergy/AdvReac Type Severity Reaction Status Date / Time levofloxacin [From Levaquin] Allergy Verified 07/29/17 01:32 Penicillins Allergy Verified 07/29/17 01:32 Medications: Current Medications Acetaminophen (Tylenol) 650 mg PO Q4H PRN PRN Reason: Headache/Fever or Mild Pain Hydrocodone Bitart/Acetaminophen ([place] 5/325) 1 tab PO Q4H PRN PRN Reason: Moderate Pain (4-6) Al Hydroxide/Mg Hydroxide (Maalox) 15 ml PO Q4H PRN PRN Reason: Heartburn or Indigestion Albuterol/Ipratropium (Duoneb) 3 ml NEB [id number] PRN PRN Reason: SOB &/or Wheezing Last Admin: 07/31/17 13:02 Dose: 3 ml Artificial Tears (Tears Naturale) 0 drop EA EYE PRN PRN PRN Reason: Dry Eyes Clonidine (Catapres) 0.1 mg PO Q4H PRN PRN Reason: Systolic BP > 180 Famotidine (Pepcid) 20 mg PO BID [facility] Last Admin: 08/01/17 08:16 Dose: 20 mg Furosemide (Lasix) 40 mg SLOW IVP NOW [facility] Stop: 08/01/17 13:00 Guaifenesin (Mucinex) 1,200 mg PO Q12HR [facility] Last Admin: 08/01/17 08:15 Dose: 1,200 mg Guaifenesin (Robitussin Sf) 200 mg PO Q4H PRN PRN Reason: Cough Hydralazine HCl (Apresoline) 10 mg SLOW IVP Q4H PRN PRN Reason: Systolic BP > 180 Azithromycin 500 mg/ Sodium (Chloride) 250 mls @ 250 mls/hr IVPB 0030 [facility] Last Admin: 07/31/17 23:41 Dose: 250 mls Ceftriaxone Sodium 2 gm/ (Sodium Chloride) 100 mls @ 200 mls/hr IVPB 2359 [facility] Last Admin: 07/31/17 23:30 Dose: 100 mls Sodium Chloride (Normal Saline 0.9%) 1,000 mls @ 0 mls/hr IV .Q0M [facility] PRN Reason: KVO Ibuprofen (Motrin) 400 mg PO Q6H PRN PRN Reason: Pain Last Admin: 07/29/17 12:35 Dose: 400 mg Ipratropium [place] (Atrovent) 2.5 ml NEB [id number] [facility] Last Admin: 08/01/17 06:26 Dose: 2.5 ml Loperamide HCl (Imodium) 2 mg PO PRN PRN PRN Reason: Diarrhea/Loose Stools Loratadine (Claritin) 10 mg PO DAILYPRN PRN PRN Reason: Sinus Symptoms Magnesium Hydroxide (Milk Of Magnesium) 30 ml PO DAILYPRN PRN PRN Reason: Constipation Mineral Oil/White Petrolatum (Eucerin Cream) 0 gm TOP BIDPRN PRN PRN Reason: Dry Skin Ondansetron HCl (Zofran Odt) 4 mg PO Q6H PRN PRN Reason: Nausea/Vomiting Ondansetron HCl (Zofran) 4 mg IVP Q6H PRN PRN Reason: Nausea/Vomiting Phenol (Chloraseptic [place] 180 Ml Bot) 0 ml PO PRN PRN PRN Reason: Sore Throat Prednisone (Prednisone) 40 mg PO QAM-WM [facility] Last Admin: 08/01/17 08:16 Dose: 40 mg Senna (Senokot) 2 tab PO HSPRN PRN PRN Reason: Constipation Silodosin (Rapaflo) 4 mg PO QAM-WM [facility] Last Admin: 08/01/17 09:41 Dose: 4 mg Sodium Chloride ([place] Nasal [place] 0.65%) 0 ml EA NARE QIDPRN PRN PRN Reason: Nasal Congestion Last Admin: 07/31/17 12:55 Dose: 1 spr
[2017-08-01] MEDS: Sodium Chloride 0.65% Nasal 44 ML BOT EA NARE PRN (10:17)
--- NOTE | 2017-08-01 12:28 | PRG ---
DATE OF SERVICE: 08/01/2017 SERVICE: Pulmonary Medicine. INTERVAL HISTORY: The patient is doing fantastic from a respiratory standpoint. He is able to actua lly get up to the bathroom with very little assistance and back to bed without significant dyspnea. This morning when we woke up, he had a little bit of jerking spell once again. That being said, it r esolved completely. He denies any chest pain, nausea, vomiting, fevers or chills. He is coughing le ss than it was on presentation. He is really happy with the progress he has made to date, but feels extraordinarily weak and would not be comfortable going home quite yet. I talked to him about starti ng BiPAP in the inpatient setting at night just to see if this helps with his chronic respiratory abiodun lure. He also has possibly some mild sleep apnea which could help with that as well. As such, we wi ll move forward with that this evening. PHYSICAL EXAMINATION: VITAL SIGNS: Afebrile, pulse 84, blood pressure 158/74, respirations 24, saturation 94% on 4 liters nasal cannula. GENERAL: The patient is awake and alert, in no apparent distress. LUNGS: Much improved air entry. There is less rhonchi. There is a prolonged expiratory phase and l ittle bit of wheezing. HEART: Normal rate, regular. ABDOMEN: Soft, nontender, nondistended. Bowel sounds are positive. MUSCULOSKELETAL: No cyanosis or clubbing. No pitting in the bilateral lower extremities. NEUROLOGIC: Grossly nonfocal. IMAGING: CT of the chest demonstrates no evidence of bronchiectasis. There is a small minimal infil trate in the right base. There is also a left-sided pleural effusion which is fairly small. It is l ayering comfortably, suggestive of benign process. He has severe emphysematous changes as well throu ghout bilateral lung ayala. ASSESSMENT: 1. Acute on chronic hypoxic respiratory failure, improving. 2. Chronic hypercapnic respiratory failure. 3. Chronic obstructive pulmonary disease with acute exacerbation. 4. Deconditioning. 5. Macrocytic anemia. 6. Asterixis, secondary to hypercapnia. PLAN: We will put the patient on BiPAP tonight. We were planning on setting him up with noninvasive volume ventilation for nighttime use as well as p.r.n. use for severe respiratory failure. He is go ing to need to stay in the hospital until he demonstrates good enough strength to get home safely. H e likely need health home out of the hospital. Pulmonary or Critical Care will continue to follow al wilfred.
[2017-08-02] MEDS: cefTRIAXone\\ROCEPHIN 2 GM in Sodium Chloride 0.9% 100 ML IVPB SCH (00:07)
[2017-08-02] MEDS: Azithromycin 500 MG in Sodium Chloride 0.9% 250 ML 250 ML IVPB SCH (01:00)
[2017-08-02] MEDS: Ipratropium Bromide 2.5 ml Neb NEB SCH ×4 (02:12→15:04)
--- NOTE | 2017-08-02 06:15 | PRG ---
DATE OF SERVICE: 07/31/2017 SERVICE: Pulmonary Medicine. SUBJECTIVE: The patient is doing outstanding from a respiratory standpoint. He denies any current c hest pain, nausea vomiting, fevers or chills. He says his cough is actually much improved today. He was able to stand up and walk carefully down the hallway before he turned around and came back. He had some dyspnea doing that, but it is much more then he was able to do when he came into the [facility]. Otherwise, there has been no interval change to his condition. OBJECTIVE: VITAL SIGNS: Afebrile, pulse 71, blood pressure 157/73, respirations 20, saturation 96% on 4 L nasal cannula. GENERAL: Patient is awake, alert, in no apparent distress. LUNGS: Reduced air entry on the right. There is much better air entry on the left. There is a prol onged expiratory phase with a little bit of wheezing. Rhonchi are much less prominent today. 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 HEART: Normal rate, regular. ABDOMEN: Soft, nontender, nondistended. Bowel sounds are positive. MUSCULOSKELETAL: No cyanosis or clubbing. I do not appreciate pitting in the bilateral lower extrem ities. NEUROLOGIC: Grossly nonfocal. LABORATORIES: Ammonia 25, INR 1.0. Hepatitis C antibody is nonreactive. ASSESSMENT: 1. Acute on chronic hypoxic respiratory failure, improving. 2. Chronic hypercapnic respiratory failure. 3. Chronic obstructive pulmonary disease with acute exacerbation. 4. Deconditioning. 5. Asterixis secondary to hypercapnia. 6. Deconditioning. 7. History of right-sided pleurodesis. 8. History of bilateral traumatic pneumothorax. PLAN: We will have to ____ meet with him tomorrow to set up noninvasive volume ventilation. Once th is is arranged, the patient's strength improves, he can be considered for transition out of the [facility]. We are going to continue his work with physical therapy. Prednisone can be discontinued after total duration of 5 days. We will continue nebulized medications and other inhalers. Ultimately, I would like for him to be discharged from the hospital with 2 sample inhalers that I will provide to h im. I will have him return to clinic in 2- 4 weeks in the outpatient setting, so that he can tell me which one he would prefer to be on long-term. In order to make certain, he does not have any underl belkys bronchiectasis which is leading to more frequent exacerbations. I will do a CT scan.
[2017-08-02] MEDS: guaiFENesin ER 600 MG TAB PO SCH (09:03)
[2017-08-02] MEDS: Silodosin 4 MG CAP PO SCH (09:03)
[2017-08-02] MEDS: predniSONE 20 MG TAB PO SCH (09:04)
[2017-08-02] MEDS: Famotidine 20 MG TAB PO SCH (09:06)
[2017-08-02 13:20] LABS: Hep B Surface AG-Rflx Sendout Negative (Negative); Hepatitis B Core IgM AB Negative (Negative); Hepatitis B Core Total Negative (Negative); Hepatitis B Surface AB-Sendout Non Reactive (.)
[2017-08-02 13:24] LABS: Anion Gap 14 mmol/L (10-20); BUN (Urea Nitrogen) 22 mg/dL (8.4-25.7); Calc. Creatinine Clearance 56 mL/min (70-130); Calcium 9.1 mg/dL (7.8-10.44); Carbon Dioxide 37 mmol/L (23-31); Chloride 94 mmol/L (98-107); Estimated GFR-MDRD 71; Glucose 143 mg/dL (83-110); Magnesium 1.7 mg/dL (1.6-2.6); Potassium 4.1 mmol/L (3.5-5.1); Sodium 141 mmol/L (136-145)
[2017-08-02 14:21] VITALS: BP 154/72; TEMP 98.2
--- NOTE | 2017-08-02 18:05 | PRG ---
DATE OF SERVICE: 08/02/2017 SERVICE: Pulmonary Medicine. INTERVAL HISTORY: The patient is doing fine from a respiratory standpoint. He denies any current ch est pain, nausea, vomiting, shortness of breath. He had a coughing spell today. He has done this fo r over 10 years. It was witnessed by medical providers. Saturations dropped into the 70s. The fami ly was perfectly calm and collected. That being said, medical staff got a little excitable. Either way, after this thing cleared, he was back to how he was. He actually feels much improved today and his strength is better. He got up and walked all the way around the circuit today. Three days ago, he could not even get out of bed without 2 people assisting him. Either way, he has made some consid erable improvement in the way that he feels. PHYSICAL EXAMINATION: VITAL SIGNS: Afebrile, pulse 77, blood pressure 154/72, respirations 18, saturation 97% on 6 liters nasal cannula. GENERAL: The patient is awake and alert. He is in no apparent distress. LUNGS: Improved air entry. There is a prolonged expiratory phase. Wheezing and crackles are both p resent. I do appreciate rhonchi today. HEART: Normal rate, regular. ABDOMEN: Soft, nontender, nondistended. Bowel sounds are positive. MUSCULOSKELETAL: No cyanosis or clubbing. There is trace pitting in the bilateral lower extremities . NEUROLOGIC: Grossly nonfocal. LABORATORY DATA: Bicarbonate 37. Basic metabolic profile is otherwise unremarkable/stable. Magnesi um 1.7. ASSESSMENT: 1. Acute on chronic hypoxic respiratory failure, improving. 2. Chronic hypercapnic respiratory failure. 3. Chronic obstructive pulmonary disease with acute exacerbation. 4. Deconditioning. 5. Asterixis secondary to hypercapnia. 6. History of right-sided pleurodesis. 7. History of bilateral traumatic pneumothorax. PLAN: The patient is going to go home with nocturnal volume ventilation for nighttime and as needed daytime use. I will have him return to clinic in roughly 2 weeks. I have given him a Stiolto inhale r that he is going to use on a daily basis. I do not think he has enough lung function in order to a dequately get a powdered medication. If the Stiolto proves to be ineffective at decreasing his use o f p.r.n. medications; we will consider him for long-acting nebulized therapy. Pulmonary Critical Car quentin will continue to follow in the outpatient setting. I gave the patient the option of staying additi onal day or going home today. He feels at that point, he has regained enough strength to safely gonzalez sition home. As such, I think it is perfectly reasonable for him to be discharged today. Sj palomares is going to be meeting him at his house tomorrow evening to set him up with the ventilator. The p atgino really did enjoy using the BiPAP last night, but the thing that made him upset about it is maryuri t the alarms continue to go off and so he would like to abandon BiPAP.
--- NOTE | 2017-08-03 09:55 | DIS ---
DATE OF DISCHARGE: 08/02/2017 DISCHARGE DISPOSITION: Home. FOLLOWUP: Follow up with primary care physician, Dr. Morton, in 1 week. Follow up with Dr. Hess in 1 week. The patient was seen and examined on the day of discharge. He denies any new complaints. Shortness of breath is slowly improving. ALLERGIES: PENICILLIN and LEVAQUIN. DISCHARGE MEDICATIONS: Prednisone 20 mg twice a day for 2 more days, azithromycin 500 mg for 3 more days, Mucinex twice a day, DuoNebs 3 times a day, Rapaflo 4 mg daily, albuterol inhaler as needed. BRIEF HOSPITAL COURSE: The patient is a 76-year-old male with COPD with chronic respiratory failure on home oxygen, presented to the emergency room with worsening shortness of breath. His workup was c onsistent with acute on chronic hypoxic respiratory failure. He was started on antibiotics along wit h steroids and nebulizer treatment with slow improvement. His blood gases the next day after admissi on showed pH of 7.32 with pCO2 70.3, bicarbonate 35.3 with pO2 66.5. He was unable to tolerate BiPAP . His echocardiogram showed left ventricular ejection fraction of 50-55% with mild mitral regurgitat ion, mild tricuspid regurgitation. CT scan of the chest showed severe emphysema with reticular nodul arity seen within the right lower lobe and lingula suspicious for bronchiolitis of infectious or infl ammatory etiology. He has been cleared by Pulmonary for discharge. FINAL DIAGNOSES: 1. Acute hypoxic and hypercapnic respiratory failure secondary to chronic obstructive pulmonary dise ase exacerbation/bronchiolitis. 2. Chronic respiratory failure on home oxygen. 3. Hyperglycemia secondary to steroids. A1c was normal. 4. Chronic kidney disease stage 2. 5. Lactic acidosis of 3.1 on admission, resolved. 6. Chronic kidney disease stage 2. 7. Chronic anemia. 8. Deconditioning. Plan of care was discussed with the patient and the family in detail. He stated understanding.
== END 2017-08-02 15:58 | disposition home or self-care (01) | DRG 189 ==
LOC: ERS 20:41 → T4-A 23:40
PROVIDERS: ADMIT Family Medicine; ATTEND Family Medicine
DX: J96.21 Acute and chronic respiratory failure with hypoxia (principal); E87.2 Acidosis; Z99.81 Dependence on supplemental oxygen; D53.9 Nutritional anemia, unspecified; J21.9 Acute bronchiolitis, unspecified; J44.0 Chronic obstructive pulmonary disease with (acute) lower respiratory infection; J96.11 Chronic respiratory failure with hypoxia; N18.2 Chronic kidney disease, stage 2 (mild); R73.9 Hyperglycemia, unspecified; T38.0X5A Adverse effect of glucocorticoids and synthetic analogues, initial encounter; Z85.46 Personal history of malignant neoplasm of prostate
CPT/HCPCS: 36415; 36416; 71045; 71250; 80048; 80053; 80069; 81003; 81015; 82140; 82553; 82607; 82746; 82805; 83036; 83605; 83690; 83735; 84484; 85007; 85025; 85027; 85610; 86704; 86705; 86706; 86707; 86803; 87040; 87086; 87340; 87350; 87633; 87798; 93005; 93306; 94640; 94660; 96365; 96367; 96375; G8978-GP-CL; G8979-GP-CJ; J0456; J0696; J1940; J2920; J2930; J3475; J7050; J7506; J7620; J7644

== ENCOUNTER 2017-08-16 09:10 | Outpatient (CLI) | payer BC ==
--- NOTE | 2017-08-16 11:07 | RAD ---
2 VIEWS CHEST: Date: 08/16/17 HISTORY: 76-year-old with history of dyspnea. FINDINGS: PA and lateral views of chest obtained. Comparison made to previous exam from 07/28/17. Two views of the chest demonstrate multiple left-sided rib fractures. There is hyperaeration and air trapping compatible with changes of COPD. 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 No evidence of acute fractures or bony lesions seen. No evidence of pneumonia or pneumothorax seen. IMPRESSION: Changes of COPD with pulmonary vascular congestion seen. No acute intrathoracic abnormalities noted. No evidence of pneumonia or pneumothorax seen. POS: [facility]
== END 2017-08-16 09:11 | disposition home or self-care (01) ==
LOC: RAD 09:10
PROVIDERS: ATTEND Internal Medicine
DX: R06.00 Dyspnea, unspecified (principal)
CPT/HCPCS: 71046

== ENCOUNTER 2018-05-30 13:34 | Outpatient (CLI) | payer MEDICARE, BC ==
--- NOTE | 2018-05-30 14:26 | RAD ---
TWO VIEWS CHEST: History: Dyspnea. Date: 05-30-18 Comparison: 08-16-17 FINDINGS: Two views of the chest demonstrates ectasia of the aorta. Air trapping and changes of COPD is present . Osteoporosis of the thoracic spine is seen. Left clavicular plate and screws are in place. IMPRESSION: Airtrapping and changes of COPD. POS: [facility]
== END 2018-05-30 13:35 | disposition home or self-care (01) ==
LOC: RAD 13:34
PROVIDERS: ATTEND Internal Medicine
DX: R06.00 Dyspnea, unspecified (principal); J98.4 Other disorders of lung
CPT/HCPCS: 71046